=== PATIENT | female | born 1945 | race Caucasian/White ===

== ENCOUNTER 2017-06-21 05:39 | Inpatient (IN) | payer MEDICAID ==
[~2017-06-21] VITALS: Ht 162.6 cm; Wt 60.1 kg
[2017-06-21] VITALS (11 sets, daily range): BP systolic 117–130; BP diastolic 56–68; PULSE 67–99; RESP 12–20; TEMP 98.3; Ht 162.6 cm; Wt 60.1 kg
[~2017-06-21 05:39] MED LIST: ASPI-664 PO; CARV3.12 PO; LOSA50TA6 PO; SITA50TA2 PO
[2017-06-21] MEDS ORDERED: LEVALBUTEROL (NEB) 1.25 MG/0.5 ML AMP HHN ONE (06:00)
[2017-06-21] MEDS ORDERED: IPRATROPIUM (NEB) 0.5 MG/2.5 ML AMP HHN ONE (06:00)
--- NOTE | 2017-06-21 06:17 | ERD ---
ER Documentation Chief Complaint Chief Complaint SOB started 0400 am; pt has been having cough lately; denies CP HPI 72-year-old woman presents with shortness of breath beginning early in the morning, she has had similar symptoms but daughter at the bedside does not know about her diagnoses. Patient denies fevers or chills, no cough, no recent calf or leg swelling. Patient denies chest pain, no vomiting or diarrhea. Unknown medication compliance. Poor historian. ROS All systems reviewed and are negative except as per history of present illness. Medications Home Meds Active Scripts Aspirin* (Aspirin* EC) 81 Mg Tabec, 81 MG PO DAILY, #30 Prov:IVÁN ERVIN V. NURSE QUALITY 07/28/15 Reported Medications Aspirin* (Aspirin* Chew) 81 Mg Tab.chew, 81 MG PO DAILY, TAB.CHEW 06/21/17 Metoprolol Succinate* (Toprol XL*) 100 Mg Tab.sr.24h, 100 MG PO DAILY, #30 TAB 06/21/17 Metformin* (Glucophage*) 850 Mg Tablet, 850 MG PO BID, #60 TAB 06/21/17 Sitagliptin* (Januvia*) 50 Mg Tablet, 50 MG PO DAILY, TAB 07/26/15 Losartan Potassium* (Losartan Potassium*) 50 Mg Tablet, 50 MG PO DAILY, TAB 07/26/15 Discontinued Scripts Carvedilol* (Coreg*) 3.125 Mg Tab, 3.125 MG PO BID, #30 TAB Prov:IVÁN ERVIN V. NURSE QUALITY 07/28/15 Allergies Allergies: Coded Allergies: No Known Allergy (Unverified , 07/26/15) PMhx/Soc Hypertension, CHF, CAD History of Surgery: Yes (shoulder, hand) Anesthesia Reaction: No Hx Neurological Disorder: Yes (PER DAUGHTER HAD LIKE STROKE ONLY INT THE FACE 25 YRS AGO) Hx Respiratory Disorders: No Hx Cardiac Disorders: Yes (HTN) Hx Psychiatric Problems: No Hx Miscellaneous Medical Probl: Yes (diabetes) Hx Alcohol Use: No Hx Substance Use: No Hx Tobacco Use: No Smoking Status: Never smoker FmHx Family History: No diabetes Physical Exam Vitals Vital Signs Date Time Temp Pulse Resp B/P Pulse Ox O2 Delivery O2 Flow Rate FiO2 06/21/17 07:50 98.4 69 26 122/61 96 Nasal Cannula 2.0 06/21/17 06:09 90 18 97 Nasal Cannula 2.0 06/21/17 06:09 97 2.0 06/21/17 06:01 98.6 81 28 167/81 97 Nasal Cannula 2.0 06/21/17 06:01 Nasal Cannula 2.0 06/21/17 06:01 Nasal Cannula 2 06/21/17 05:42 97.1 87 25 178/84 87 Physical Exam GENERAL: Well-developed, well-nourished, well-hydrated, in no apparent distress , looks nontoxic in appearance HEENT: Moist mucous membranes, pink conjunctiva, no cervical spine tenderness or step-off deformities, no goiter, no jaundice or icterus, extraocular movements intact without pain. No submandibular induration, and no pharyngeal erythema NEURO: Alert and oriented 3, cranial nerves II through XII intact bilaterally, pupils equal round reactive to light, no focal deficits or facial asymmetry, sensation intact distally Strength 5/5 in upper and lower extremities bilaterally CARDIAC: Regular rate and rhythm, no murmurs rubs or gallops LUNGS: Bibasilar crackles, no wheezing or stridor ABDOMEN: Soft nontender, no guarding, no rigidity, no rebound, no psoas sign no obturator sign. Normoactive bowel sounds SKIN: Warm and dry to touch, no abrasions, contusions, or hematomas, no lacerations, no ecchymosis, no target lesions, and without ulcers EXTREMITIES: No clubbing cyanosis or edema, calves are bilaterally symmetrical, no Homans sign, no popliteal cord sign. Distal pulses equal and bilateral PSYCH: Normal affect without agitation or irritability Result Diagram: 06/21/17 0606/21/17 06 Results 24 hrs Laboratory Tests Test 06/21/17 06:00 White Blood Count 12.810^3/ul Red Blood Count 4.5710^6/ul Hemoglobin 13.5g/dl Hematocrit 41.7% Mean Corpuscular Volume 91.2fl Mean Corpuscular Hemoglobin 29.5pg Mean Corpuscular Hemoglobin Concent 32.4g/dl Red Cell Distribution Width 12.9% Platelet Count 33237^3/UL Mean Platelet Volume 11.4fl Neutrophils % 74.1% Lymphocytes % 18.3% Monocytes % 6.2% Eosinophils % 0.8% Basophils % 0.2% Nucleated Red Blood Cells % 0.0/100WBC Neutrophils # 9.510^3/ul Lymphocytes # 2.410^3/ul Monocytes # 0.810^3/ul Eosinophils # 0.110^3/ul Basophils # 0.010^3/ul Nucleated Red Blood Cells # 0.010^3/ul Prothrombin Time 12.7Sec Prothrombin Time Ratio 1.0 INR International Normalized Ratio 0.95 Activated Partial Thromboplast Time 25.9Sec Sodium Level 141mmol/L Potassium Level 4.1mmol/L Chloride Level 101mmol/L Carbon Dioxide Level 28mmol/L Anion Gap 16 Blood Urea Nitrogen 16mg/dl Creatinine 0.70mg/dl Glucose Level 207mg/dl Calcium Level 9.5mg/dl Troponin I 0.016ng/ml B-Type Natriuretic Peptide 1690PG/ML Current Medications Medications (Trade) Dose Ordered Sig/Carrol Route PRN Reason Start Time Stop Time Status Last Admin Dose Admin Levalbuterol (Xopenex Neb) 1.25 mg ONCE ONCE HHN 06/21/17 06:00 06/21/17 06:01 DC 06/21/17 06:06 Ipratropium [place] (Atrovent 0.02% (Neb)) 0.5 mg ONCE ONCE HHN 06/21/17 06:00 06/21/17 06:01 DC 06/21/17 06:06 Furosemide (Lasix) 60 mg ONCE ONCE IV 06/21/17 06:30 06/21/17 06:31 DC 06/21/17 07:55 Aspirin (Aspirin) 324 mg ONCE ONCE PO 06/21/17 06:30 06/21/17 06:31 DC 06/21/17 07:55 Nitroglycerin (Nitroglycerin (Sl Tab) 0.4 Mg) 1 tab ONCE ONCE SL 06/21/17 06:30 06/21/17 06:31 DC 06/21/17 07:55 Procedures/MDM IV line was established 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 Patient was afebrile EKG performed, read by me revealed a normal sinus rhythm at 80 bpm, normal axis , right bundle branch block QRS duration of 126 ms, LVH, no concerning ST elevations or depressions noted, diffuse T-wave inversions. One view chest x-ray performed, read by me revealed a minor edema bilaterally and cardiomegaly, no acute infiltrates, no pneumothorax. Consistent with decompensated heart failure I administered aspirin 324 mg p.o. for cardioprotective measures, nitroglycerin 0.4 mg sublingual 1, furosemide 60 mg IV 1. CBC and electrolytes were normal, troponin was negative, BNP elevated Patient to be admitted to telemetry setting for continued medical management and cardiology consultation. Departure Diagnosis: Primary Impression: CHF (congestive heart failure) Congestive heart failure type: diastolic Congestive heart failure chronicity : acute Qualified Code: I50.31 - Acute diastolic congestive heart failure Condition: ALLIE Hines MD Jun 21, 2017 06:17
[2017-06-21] MEDS ORDERED: ASPIRIN 81 MG TAB PO ONE (06:30)
[2017-06-21] MEDS ORDERED: NITROGLYCERIN (SL) 0.4 MG TAB SL ONE (06:30)
[2017-06-21] MEDS ORDERED: FUROSEMIDE 40 MG INJ IV ONE (06:30)
[2017-06-21 06:39] LABS: BASOPHILS % 0.2 % (0.0-2.0); EOSINOPHILS # 0.1 10^3/ul (0.0-0.5); EOSINOPHILS % 0.8 % (0.0-7.0); HEMATOCRIT 41.7 % (37.0-47.0); HEMOGLOBIN 13.5 g/dl (12.0-16.0); LYMPHOCYTES # 2.4 10^3/ul (0.8-2.9); LYMPHOCYTES % 18.3 % (15.0-51.0); MEAN CORPUSCULAR HEMOGLOBIN 29.5 pg (29.0-33.0); MEAN CORPUSCULAR HGB CONC 32.4 g/dl (32.0-37.0); MEAN CORPUSCULAR VOLUME 91.2 fl (82.0-101.0); MEAN PLATELET VOLUME 11.4 fl (7.4-10.4); MONOCYTE # 0.8 10^3/ul (0.3-0.9); MONOCYTES % 6.2 % (0.0-11.0); NEUTROPHIL # 9.5 10^3/ul (1.6-7.5); NEUTROPHILS % 74.1 % (39.0-77.0); PLATELET COUNT 184 10^3/UL (140-415); RED BLOOD COUNT 4.57 10^6/ul (4.20-5.40); RED CELL DISTRIBUTION WIDTH 12.9 % (11.5-14.5); WHITE BLOOD COUNT 12.8 10^3/ul (4.8-10.8)
--- NOTE | 2017-06-21 06:47 | RADRPT ---
PROCEDURE: XR Chest. CLINICAL INDICATION: CHF TECHNIQUE: Frontal chest x-ray was obtained. COMPARISON: Chest x-ray July 26, 2015 FINDINGS: The heart is not enlarged. Mediastinum is not widened. No hilar masses seen. Lungs clear of any infi ltrates. There is no effusion or pneumothorax. IMPRESSION: No evidence for active cardiopulmonary disease. .Arik Solis MD, MD Date Time Electronically viewed and signed by .Arik Solis MD, on 06/21/2017 06:47 .A/
[2017-06-21 06:55] LABS: INR 0.95; PARTIAL THROMBOPLASTIN TIME 25.9 Sec (25.0-35.0); PROTIME 12.7 Sec (12.2-14.2)
[2017-06-21 06:59] LABS: CALCIUM 9.5 mg/dl (8.4-10.2); CREATININE 0.7 mg/dl (0.44-1.00); POTASSIUM 4.1 mmol/L (3.5-5.1)
[2017-06-21 07:10] LABS: TROPONIN-I 0.016 ng/ml (0.00-0.12)
[2017-06-21] MEDS ORDERED: METO-336 PO (08:59)
[2017-06-21] MEDS ORDERED: METF-480 PO (08:59)
[2017-06-21] MEDS ORDERED: ASPI81TA3 PO (09:00)
--- NOTE | 2017-06-21 12:30 | HP ---
Date/Time of Note Date/Time of Note DATE: 06/21/17 TIME: 12:30 Assessment/Plan VTE Prophylaxis VTE Prophylaxis Intervention: LMWH Assessment/Plan Assessment/Plan 1. Acute onset of shortness of breath with elevated BNP suggestive of congestive heart failure 2. EKG abnormality concerning for possible ACS 3. Chronic hypertension with fair control 4. Chronic diabetes type 2 Plan Telemetry admission, trend cardiac enzymes, 2d echo if none recently and possible cardiology consult for stress test. oxygen and nitroglycerin therapy as needed. Gentle diuresis with IV lasix Daily aspirin if no allergy or bleeding risk. Get lipid profile, magnesium and TSH levels in am. Supportive care HPI/ROS Admit Date/Time Admit Date/Time Jun 21, 2017 at 07:53 Hx of Present Illness 72 yo F who started having difficulty breathing early this am at about 4am. This got worse to where her family had to bring her to the ER. She has a hx of HTN and DM and has been very compliant with her meds. She has never had an NH in the past. She's been having some mild phlegm production over the last few days but no fever. She denies chest pain as well. she has had similar symptoms about 2 years ago and this was attributed to her HTN. She has very mild headache, but denies abd pain, diarrhea, blood in stool, dysuria or hematuria. No smokers in the home. ROS 12 point review if systems was done and pertinent findings are as noted. PMH/Family/Social Past Medical History * HYN * DM type 2 Past Surgical History * shoulder and hand sx Family History Significant Family History: heart disease, vascular disease Social History Alcohol Use: none Smoking Status: Never smoker Drug Use: none Exam/Review of Systems Vital Signs Vitals VS - Last 72 Hours, by Label Date Time Temp Pulse Resp B/P Pulse Ox O2 Delivery O2 Flow Rate FiO2 06/21/17 16:02 99 06/21/17 14:45 76 12 130/64 99 Room Air 06/21/17 12:00 71 06/21/17 11:31 74 06/21/17 11:15 74 06/21/17 11:00 98.5 73 20 119/56 Room Air 06/21/17 10:28 98.3 74 22 117/55 97 Room Air 2.0 06/21/17 07:50 98.4 69 26 122/61 96 Nasal Cannula 2.0 06/21/17 06:09 90 18 97 Nasal Cannula 2.0 06/21/17 06:09 97 2.0 06/21/17 06:01 98.6 81 28 167/81 97 Nasal Cannula 2.0 06/21/17 06:01 Nasal Cannula 2.0 06/21/17 06:01 Nasal Cannula 2 06/21/17 05:42 97.1 87 25 178/84 87 Vital Signs Date Time Temp Pulse Resp B/P Pulse Ox O2 Delivery O2 Flow Rate FiO2 06/21/17 11:31 74 06/21/17 11:00 98.5 20 119/56 Room Air 06/21/17 10:28 97 2.0 Exam Constitutional: alert, oriented Psych: anxiety Head: atraumatic, normocephalic Eyes: PERRL ENMT: mucosa pink and moist Neck: non-tender, supple, No jvd Respiratory: crackles/rales (very fine in the bases posteriorly) Cardiovascular: regular rate and rhythm, No murmurs/extra sounds Gastrointestinal: bowel sounds, non-tender, soft Extremities: No edema Neurological: nl mental status, No focal weakness Labs Result Diagram: 06/21/17 0600 06/21/17 0600 Procedures Procedures . Laboratory Tests Test 06/21/17 06:00 White Blood Count 12.810^3/ul Red Blood Count 4.5710^6/ul Hemoglobin 13.5g/dl Hematocrit 41.7% Mean Corpuscular Volume 91.2fl Mean Corpuscular Hemoglobin 29.5pg Mean Corpuscular Hemoglobin Concent 32.4g/dl Red Cell Distribution Width 12.9% Platelet Count 21114^3/UL Mean Platelet Volume 11.4fl Neutrophils % 74.1% Lymphocytes % 18.3% Monocytes % 6.2% Eosinophils % 0.8% Basophils % 0.2% Nucleated Red Blood Cells % 0.0/100WBC Neutrophils # 9.510^3/ul Lymphocytes # 2.410^3/ul Monocytes # 0.810^3/ul Eosinophils # 0.110^3/ul Basophils # 0.010^3/ul Nucleated Red Blood Cells # 0.010^3/ul Prothrombin Time 12.7Sec Prothrombin Time Ratio 1.0 INR International Normalized Ratio 0.95 Activated Partial Thromboplast Time 25.9Sec Sodium Level 141mmol/L Potassium Level 4.1mmol/L Chloride Level 101mmol/L Carbon Dioxide Level 28mmol/L Anion Gap 16 Blood Urea Nitrogen 16mg/dl Creatinine 0.70mg/dl Glucose Level 207mg/dl Calcium Level 9.5mg/dl Troponin I 0.016ng/ml B-Type Natriuretic Peptide 1690PG/ML Current Medications Medications (Trade) Dose Ordered Sig/Carrol Route PRN Reason Start Time Stop Time Status Last Admin Dose Admin Levalbuterol (Xopenex Neb) 1.25 mg ONCE ONCE N 06/21/17 06:00 06/21/17 06:01 DC 06/21/17 06:06 Ipratropium [place] (Atrovent 0.02% (Neb)) 0.5 mg ONCE ONCE N 06/21/17 06:00 06/21/17 06:01 DC 06/21/17 06:06 Furosemide (Lasix) 60 mg ONCE ONCE IV 06/21/17 06:30 06/21/17 06:31 DC 06/21/17 07:55 Aspirin (Aspirin) 324 mg ONCE ONCE PO 06/21/17 06:30 06/21/17 06:31 DC 06/21/17 07:55 Nitroglycerin (Nitroglycerin (Sl Tab) 0.4 Mg) 1 tab ONCE ONCE SL 06/21/17 06:30 06/21/17 06:31 DC 06/21/17 07:55 Aspirin (Halfprin) 81 mg DAILY PO 06/21/17 14:00 UNV Losartan Potassium (Cozaar) 50 mg DAILY PO 06/22/17 09:00 UNV Metformin HCl (Glucophage) 850 mg BID PO 06/21/17 21:00 UNV Miscellaneous Information 50 mg DAILY PO 06/22/17 09:00 UNV Metoprolol Tartrate (Lopressor) 25 mg BID PO 06/21/17 14:00 UNV Furosemide (Lasix) 20 mg BID DIURETICS IV 06/21/17 18:00 UNV PROCEDURE: XR Chest. CLINICAL INDICATION: CHF TECHNIQUE: Frontal chest x-ray was obtained. COMPARISON: Chest x-ray July 26, 2015 FINDINGS: The heart is not enlarged. Mediastinum is not widened. No hilar masses seen. Lungs clear of any infiltrates. There is no effusion or pneumothorax. IMPRESSION: No evidence for active cardiopulmonary disease. .Arik Solis MD, MD Date Time Electronically viewed and signed by .Arik Solis MD, MD on 06/21/2017 06: 47 .A/ CC: MARGIE MCCONNELL MD Patient has normal return EKG but there is concern for some ST depressions as well as multiple PACs which is also showing on the chief of service. JEFFERY GUZMÁN Jun 21, 2017 12:30
[2017-06-21] MEDS ORDERED: DEXTROSE 50% 50 ML SYRINGE IV PRN ×2 (14:30)
[2017-06-21] MEDS: LOSARTAN 50 MG TAB PO SCH (14:30)
[2017-06-21] MEDS ORDERED: GLUCOSE GEL 15 GRAM TUBE BUCCAL PRN (14:30)
[2017-06-21] MEDS: ASPIRIN (EC) 81 MG TAB PO SCH (14:30)
[2017-06-21] MEDS ORDERED: GLUCOSE GEL 15 GRAM TUBE PO PRN ×2 (14:30)
[2017-06-21] MEDS ORDERED: GLUCAGON 1 MG INJ IM PRN (14:30)
[2017-06-21] MEDS: METOPROLOL 50 MG TAB PO SCH ×2 (14:57→22:28)
[2017-06-21 16:25] LABS: ALBUMIN 4.2 g/dl (3.3-4.9); MAGNESIUM 1.9 mg/dl (1.7-2.5); PHOSPHORUS 4.2 mg/dl (2.5-4.9); TOTAL PROTEIN 7.1 g/dl (6.1-8.1)
[2017-06-21 16:36] LABS: CK-MB 0.8 ng/ml (0.0-2.4); TROPONIN-I 0.019 ng/ml (0.00-0.12)
[2017-06-21 17:10] LABS: CHOL/HDL RATIO 3.1 RATIO
--- NOTE | 2017-06-21 17:53 | RADRPT ---
Echocardiogram Report Patient Name: ANAY BELTRE Gender: Female Date: 1945 Study Date: 21-Jun-2017 Supervisor Harvesting: Traci [facility] Location: 3[address] Ref. Physician: JEFFERY GUZMÁN Quality: Technically Difficult Study Procedures: Transthoracic echocardiogram with complete 2D, M-Mode, and doppler examination. Indications: Shortness of breath. 2D/M Mode Doppler Measurement Value Normal Ranges Measurement Value Normal Ranges LVIDd 2D 4.4 3.5 - 5.6 cm AV Peak Rodo 1.4 m/sec LVIDs 2D 2.8 2.1 - 4.1 cm AV Peak PG 8.0 mmHg FS 2D 36.0 % LVOT Peak Rodo 1.2 m/sec LVPWd 2D 1.5 0.6 - 1.1 cm LVOT Peak PG 5.0 mmHg IVSd 2D 1.5 0.6 - 1.1 cm MV E Peak Rodo 1.0 m/sec IVS/LVPW 2D 1.0 MV A Peak Rodo 0.6 m/sec AoR Diam 2D 2.7 2.0 - 3.7 cm MV E/A 1.6 LA/Ao 2D 2 0 - 1 MV Decel Time 211 msec EDV 2D 88.1 cm3 MV E/A 1.6 ESV 2D 23.1 cm3 LA Dimen 2D 4.9 2.3 - 4.0 cm Findings Left Ventricle: Normal left ventricular systolic function. Normal left ventricular cavity size. Moderate concentric left ventricular hypertrophy. Ejection fraction is visually estimated at 55 %. Abnormal Diastolic Function. Right Ventricle: Normal right ventricular size. Normal right ventricular systolic function. Left Atrium: There is severe enlargement of left atrium. Right Atrium: The right atrium is normal in size. Mitral Valve: Mild mitral leaflet calcification. Mild mitral annular calcification. Trace mitral regurgitation. Aortic Valve: Normal appearance of the aortic valve. No significant aortic stenosis or insufficiency. Tricuspid Valve: Normal appearance of the tricuspid valve. Unable to obtain RVSP due to minimal presence of tricuspid regurgitation. There is trace tricuspid regurgitation. Pulmonic Valve: Pulmonic valve not well visualized. There is trace pulmonic regurgitation. Pericardium: Normal pericardium with no significant pericardial effusion. Aorta: Normal aortic root. IVC: Normal size and normal respiratory collapse consistent with normal right atrial pressure. Conclusions 1.Normal left ventricular systolic function. Normal left ventricular cavity size. Moderate concentric left ventricular hypertrophy. Ejection fraction is visually estimated at 55 %. Abnormal Diastolic Function. 2.Mild mitral leaflet calcification. Mild mitral annular calcification. Trace mitral regurgitation. 3.Normal appearance of the aortic valve. No significant aortic stenosis or insufficiency. 4.Normal appearance of the tricuspid valve. Unable to obtain RVSP due to minimal presence of tricuspid regurgitation. There is trace tricuspid regurgitation. 5.Pulmonic valve not well visualized. There is trace pulmonic regurgitation. 6.Normal pericardium with no significant pericardial effusion. Electronically Signed By: Trey Gupta 21-Jun-2017 17:52:54 -0800 Patient Name: ANAY BELTRE Study Date: 21-Jun-2017 [id number]
[2017-06-21] MEDS: FUROSEMIDE 20 MG INJ IV SCH (22:27)
[2017-06-21] MEDS: metFORMIN 850 MG TAB PO SCH (22:28)
[2017-06-21 22:58] LABS: ADD UMIC YES; UR ASCORBIC ACID NEGATIVE (NEGATIVE); UR BILIRUBIN (Dip) NEGATIVE (NEGATIVE); UR BLOOD (Dip) 1+ mg/dL (NEGATIVE); UR CLARITY CLEAR (CLEAR); UR COLOR STRAW (YELLOW); UR GLUCOSE (Dip) NEGATIVE (NEGATIVE); UR KETONES (Dip) NEGATIVE (NEGATIVE); UR LEUKOCYTE ESTERASE (Dip) NEGATIVE Leu/ul (NEGATIVE); UR NITRITE (Dip) NEGATIVE (NEGATIVE); UR RBC 1 /HPF (0-5); UR SPECIFIC GRAVITY (Dip) 1.005 (1.003-1.030); UR TOTAL PROTEIN (Dip) NEGATIVE (NEGATIVE); UR UROBILINOGEN (Dip) NEGATIVE (NEGATIVE)
[2017-06-22] VITALS (12 sets, daily range): BP systolic 94–131; BP diastolic 53–75; PULSE 70–85; RESP 16–20
[2017-06-22] MEDS: FUROSEMIDE 20 MG INJ IV SCH ×2 (06:19→17:08)
[2017-06-22 06:37] LABS: BASOPHILS % 0.4 % (0.0-2.0); EOSINOPHILS # 0.1 10^3/ul (0.0-0.5); HEMOGLOBIN 13.9 g/dl (12.0-16.0); LYMPHOCYTES # 1.9 10^3/ul (0.8-2.9); LYMPHOCYTES % 27.5 % (15.0-51.0); MEAN CORPUSCULAR HEMOGLOBIN 29.8 pg (29.0-33.0); MEAN CORPUSCULAR HGB CONC 33.1 g/dl (32.0-37.0); MEAN CORPUSCULAR VOLUME 89.9 fl (82.0-101.0); MEAN PLATELET VOLUME 11.3 fl (7.4-10.4); MONOCYTE # 0.7 10^3/ul (0.3-0.9); MONOCYTES % 10.3 % (0.0-11.0); NEUTROPHIL # 4.3 10^3/ul (1.6-7.5); NEUTROPHILS % 60.5 % (39.0-77.0); PLATELET COUNT 170 10^3/UL (140-415); RED BLOOD COUNT 4.67 10^6/ul (4.20-5.40)
[2017-06-22 07:21] LABS: CALCIUM 9.9 mg/dl (8.4-10.2); CREATININE 0.87 mg/dl (0.44-1.00); POTASSIUM 4.8 mmol/L (3.5-5.1)
[2017-06-22] MEDS: ASPIRIN (EC) 81 MG TAB PO SCH (08:41)
[2017-06-22] MEDS: LOSARTAN 50 MG TAB PO SCH (08:41)
[2017-06-22] MEDS: METOPROLOL 50 MG TAB PO SCH ×2 (08:41→21:17)
[2017-06-22] MEDS: LINAGLIPTIN 5 MG TABLET PO SCH (08:41)
[2017-06-22] MEDS: metFORMIN 850 MG TAB PO SCH ×2 (08:41→17:08)
[2017-06-22 11:59] LABS: CREATINE KINASE 129 IU/L (23-200)
[2017-06-22 12:13] LABS: CK-MB 1.19 ng/ml (0.0-2.4)
[2017-06-22 12:14] LABS: TROPONIN-I < 0.012 ng/ml (0.00-0.12)
--- NOTE | 2017-06-22 12:51 | DS ---
Date/Time of Note Date/Time of Note DATE: 06/22/17 TIME: 12:47 Discharge Summary Admission/Discharge Info Admit Date/Time Jun 21, 2017 at 07:53 Discharge Date/Time Patient Condition: Stable Hx of Present Illness 72 yo F who started having difficulty breathing early this am at about 4am. This got worse to where her family had to bring her to the ER. She has a hx of HTN and DM and has been very compliant with her meds. She has never had an WI in the past. She's been having some mild phlegm production over the last few days but no fever. She denies chest pain as well. she has had similar symptoms about 2 years ago and this was attributed to her HTN. She has very mild headache, but denies abd pain, diarrhea, blood in stool, dysuria or hematuria. No smokers in the home. . Hospital Course 72-year-old female who was admitted yesterday with difficulty breathing and was admitted also with some EKG abnormalities. She was ruled out for an acute coronary syndrome with 3 negative troponins, she had a 2D echocardiogram done, but based on her elevated BNP she was treated for a mild episode of an acute congestive heart failure. However during inpatient telemetry monitoring she was noted to be in atrial fibrillation intermittently wi good rate control. The patient has been told this in the past that she does have irregular heartbeat but for some reason she was placed on aspirin and any blood thinners. She will be seen by cardiology and if no further interventions, discharged home in stable condition. . Home Meds Active Scripts Aspirin* (Aspirin* EC) 81 Mg Tabec, 81 MG PO DAILY, #30 Prov:IVÁN ERVIN NP 07/28/15 Reported Medications Aspirin* (Aspirin* Chew) 81 Mg Tab.chew, 81 MG PO DAILY, TAB.CHEW 06/21/17 Metoprolol Succinate* (Toprol XL*) 100 Mg Tab.sr.24h, 100 MG PO DAILY, #30 TAB 06/21/17 Metformin* (Glucophage*) 850 Mg Tablet, 850 MG PO BID, #60 TAB 06/21/17 Sitagliptin* (Januvia*) 50 Mg Tablet, 50 MG PO DAILY, TAB 07/26/15 Losartan Potassium* (Losartan Potassium*) 50 Mg Tablet, 50 MG PO DAILY, TAB 07/26/15 Discontinued Scripts Carvedilol* (Coreg*) 3.125 Mg Tab, 3.125 MG PO BID, #30 TAB Prov:IVÁN ERVIN V. VÍCTOR 07/28/15 Primary Care Provider Care Physician No Primary Time spent on discharge: > 30 minutes Pending Labs Laboratory Tests Test 06/21/17 13:51 06/21/17 15:43 06/21/17 18:53 06/21/17 18:55 Bedside Glucose 132mg/dL (70-220) 119mg/dL (70-220) Phosphorus Level 4.2mg/dl (2.5-4.9) Magnesium Level 1.9mg/dl (1.7-2.5) Total Bilirubin 1.0mg/dl (0.2-1.3) Direct Bilirubin 0.00mg/dl (0.00-0.20) Indirect Bilirubin 1.0mg/dl (0-1.1) Aspartate Amino Transf (AST/SGOT) 19IU/L (15-46) Alanine Aminotransferase (ALT/SGPT) 26IU/L (13-69) Alkaline Phosphatase 61IU/L (42-121) Creatine Kinase 68IU/L (23-200) Creatine Kinase Index 1.2 Creatinine Kinase MB (Mass) 0.80ng/ml (0.0-2.4) Troponin I 0.019ng/ml (0.00-0.12) Total Protein 7.1g/dl (6.1-8.1) Albumin 4.2g/dl (3.3-4.9) Triglycerides Level 95mg/dl (0-149) Cholesterol Level 124mg/dl (100-200) LDL Cholesterol, Calculated 65mg/dl HDL Cholesterol 40mg/dl (33-92) Cholesterol/HDL Ratio 3.1RATIO Urine Color STRAW (YELLOW) Urine Clarity CLEAR (CLEAR) Urine pH 7.0 (5.0-9.0) Urine Specific [place] 1.005 (1.003-1.030) Urine Ketones NEGATIVEmg/dL (NEGATIVE) Urine Nitrite NEGATIVEmg/dL (NEGATIVE) Urine Bilirubin NEGATIVEmg/dL (NEGATIVE) Urine Urobilinogen NEGATIVEmg/dL (NEGATIVE) Urine Leukocyte Esterase NEGATIVELeu/ul (NEGATIVE) Urine Microscopic RBC 1/HPF (0-5) Urine Microscopic WBC 0/HPF (0-5) Urine Hemoglobin 1+mg/dL (NEGATIVE) Urine Glucose NEGATIVEmg/dL (NEGATIVE) Urine Total Protein NEGATIVEmg/dl (NEGATIVE) Test 06/22/17 05:57 06/22/17 08:40 White Blood Count 7.010^3/ul (4.8-10.8) Red Blood Count 4.6710^6/ul (4.20-5.40) Hemoglobin 13.9g/dl (12.0-16.0) Hematocrit 42.0% (37.0-47.0) Mean Corpuscular Volume 89.9fl (82.0-101.0) Mean Corpuscular Hemoglobin 29.8pg (29.0-33.0) Mean Corpuscular Hemoglobin Concent 33.1g/dl (32.0-37.0) Red Cell Distribution Width 13.0% (11.5-14.5) Platelet Count 14447^3/UL (140-415) Mean Platelet Volume 11.3fl (7.4-10.4) Neutrophils % 60.5% (39.0-77.0) Lymphocytes % 27.5% (15.0-51.0) Monocytes % 10.3% (0.0-11.0) Eosinophils % 1.0% (0.0-7.0) Basophils % 0.4% (0.0-2.0) Nucleated Red Blood Cells % 0.0/100WBC (0.0-0.0) Neutrophils # 4.310^3/ul (1.6-7.5) Lymphocytes # 1.910^3/ul (0.8-2.9) Monocytes # 0.710^3/ul (0.3-0.9) Eosinophils # 0.110^3/ul (0.0-0.5) Basophils # 0.010^3/ul (0.0-0.1) Nucleated Red Blood Cells # 0.010^3/ul (0.0-0.0) Sodium Level 142mmol/L (135-144) Potassium Level 4.8mmol/L (3.5-5.1) Chloride Level 98mmol/L (97-110) Carbon Dioxide Level 35mmol/L (21-31) Anion Gap 14 (8-16) Blood Urea Nitrogen 24mg/dl (7-20) Creatinine 0.87mg/dl (0.44-1.00) Glucose Level 152mg/dl (70-220) Calcium Level 9.9mg/dl (8.4-10.2) Creatine Kinase 129IU/L (23-200) Creatine Kinase Index 0.9 Creatinine Kinase MB (Mass) 1.19ng/ml (0.0-2.4) Troponin I < 0.012ng/ml (0.00-0.12) Thyroid Stimulating Hormone (TSH) 1.360MIU/L (0.465-4.680) Bedside Glucose 145mg/dL (70-220) JEFFERY GUZMÁN Jun 22, 2017 12:51 JEFFERY GUZMÁN Jun 22, 2017 12:51
--- NOTE | 2017-06-22 14:27 | CONS ---
Date/Time of Note Date/Time of Note DATE: 06/22/17 TIME: 14:22 Assessment/Plan Assessment/Plan Chief Complaint/Hosp Course 1) paroxysmal atrial flutter/atrial fibrillation, possibly new onset 2) Dynamic EKG changes 3) negative biomarkers 4) Preserved LV function 5) DM 6) HTN Problems: Additional Assessment/Plan 1) will start lovenox therapeutic 2) Given EKG changes and risk factors will order stress test 3) recommend to start eliquis is stress negative 4) will start statin Consultation Date/Type/Reason Admit Date/Time Jun 21, 2017 at 07:53 Date of Consultation: Jun 22, 2017 Type of Consultation: cv Reason for Consultation SOB Hx of Present Illness patient admitted w SOB, no chest pain, present since several days, no palpitations, no exertional symptoms, now resolved. Constitutional: no complaints Respiratory: no complaints Cardiovascular: no complaints Gastrointestinal: no complaints Musculoskeletal: no complaints Neurologic: no complaints Endocrine: no complaints Lymphatic: no complaints Past Medical History Medical History: diabetes, hypertension Past Surgical History Past Surgical Hx: no surgical history Family History Significant Family History: hypertension Social History Alcohol Use: none Smoking Status: Never smoker Drug Use: none Exam/Review of Systems Vital Signs Vitals Vital Signs Date Time Temp Pulse Resp B/P Pulse Ox O2 Delivery O2 Flow Rate FiO2 06/22/17 12:08 75 06/22/17 11:36 98.3 20 94/57 94 06/21/17 22:21 Room Air 1.0 Intake and Output 06/21/17 06/21/17 06/22/17 15:00 23:00 07:00 Intake Total 120 ml 300 ml Balance 120 ml 300 ml Exam Constitutional: alert, oriented Head: atraumatic, normocephalic Neck: supple Respiratory: clear to auscultation Cardiovascular: irregular rhythm Gastrointestinal: soft Musculoskeletal: nl extremities to inspection Extremities: normal pulses Neurological: [employer] II-XII intact Results Result Diagram: 06/22/17 0557 06/22/17 0557 Results 24 hrs Laboratory Tests Test 06/21/17 15:43 06/21/17 18:53 06/21/17 18:55 06/22/17 05:57 Phosphorus Level 4.2 Magnesium Level 1.9 Total Bilirubin 1.0 Direct Bilirubin 0.00 Indirect Bilirubin 1.0 Aspartate Amino Transf (AST/SGOT) 19 Alanine Aminotransferase (ALT/SGPT) 26 Alkaline Phosphatase 61 Creatine Kinase 68 129 Creatine Kinase Index 1.2 0.9 Creatinine Kinase MB (Mass) 0.80 1.19 Troponin I 0.019 < 0.012 Total Protein 7.1 Albumin 4.2 Triglycerides Level 95 Cholesterol Level 124 LDL Cholesterol, Calculated 65 HDL Cholesterol 40 Cholesterol/HDL Ratio 3.1 Bedside Glucose 119 Urine Color STRAW Urine Clarity CLEAR Urine pH 7.0 Urine Specific [place] 1.005 Urine Ketones NEGATIVE Urine Nitrite NEGATIVE Urine Bilirubin NEGATIVE Urine Urobilinogen NEGATIVE Urine Leukocyte Esterase NEGATIVE Urine Microscopic RBC 1 Urine Microscopic WBC 0 Urine Hemoglobin 1+ H Urine Glucose NEGATIVE Urine Total Protein NEGATIVE White Blood Count 7.0 # Red Blood Count 4.67 Hemoglobin 13.9 Hematocrit 42.0 Mean Corpuscular Volume 89.9 Mean Corpuscular Hemoglobin 29.8 Mean Corpuscular Hemoglobin Concent 33.1 Red Cell Distribution Width 13.0 Platelet Count 170 Mean Platelet Volume 11.3 H Neutrophils % 60.5 Lymphocytes % 27.5 Monocytes % 10.3 Eosinophils % 1.0 Basophils % 0.4 Nucleated Red Blood Cells % 0.0 Neutrophils # 4.3 Lymphocytes # 1.9 Monocytes # 0.7 Eosinophils # 0.1 Basophils # 0.0 Nucleated Red Blood Cells # 0.0 Sodium Level 142 Potassium Level 4.8 Chloride Level 98 Carbon Dioxide Level 35 H Anion Gap 14 Blood Urea Nitrogen 24 H Creatinine 0.87 Glucose Level 152 Calcium Level 9.9 Thyroid Stimulating Hormone (TSH) 1.360 Test 06/22/17 08:40 Bedside Glucose 145 Medications Medications Current Medications Aspirin (Halfprin) 81 mg DAILY PO Last administered on 06/22/17 08:41; Admin Dose 81 MG; Start 06/21/17 at 14:30 Losartan Potassium (Cozaar) 50 mg DAILY PO Last administered on 06/22/17 08:41 ; Admin Dose 50 MG; Start 06/21/17 at 14:30 Linagliptin (Tradjenta) 5 mg DAILY PO Last administered on 06/22/17 08:41; Admin Dose 5 MG; Start 06/22/17 at 09:00 Metoprolol Tartrate (Lopressor) 25 mg BID PO Last administered on 06/22/17 08: 41; Admin Dose 25 MG; Start 06/21/17 at 14:30 Miscellaneous Information 1 ea NOTE XX ; Start 06/21/17 at 14:30 Glucose (Glutose) 15 gm Q15M PRN PO DECREASED GLUCOSE; Start 06/21/17 at 14:30 Glucose (Glutose) 22.5 gm Q15M PRN PO DECREASED GLUCOSE; Start 06/21/17 at 14: 30 Dextrose (D50w Syringe) 25 ml Q15M PRN IV DECREASED GLUCOSE; Start 06/21/17 at 14:30 Dextrose (D50w Syringe) 50 ml Q15M PRN IV DECREASED GLUCOSE; Start 06/21/17 at 14:30 Glucagon (Glucagen) 1 mg Q15M PRN IM DECREASED GLUCOSE; Start 06/21/17 at 14: 30 Glucose (Glutose) 15 gm Q15M PRN BUCCAL DECREASED GLUCOSE; Start 06/21/17 at 14:30 Procedures Procedures EKG: atrial flutter, RBBB, ST cvhanges, dynamic changes JOCELYN GILLILAND MD Jun 22, 2017 14:27
[2017-06-22] MEDS: LEVOFLOXACIN 500 MG TAB PO SCH (17:07)
[2017-06-22] MEDS: ATORVASTATIN 10 MG TAB PO SCH (21:16)
[2017-06-22] MEDS: ENOXAPARIN 60 MG/0.6 ML SYG SC SCH (21:18)
[2017-06-23] VITALS (11 sets, daily range): BP systolic 104–121; BP diastolic 52–60; PULSE 66–80; RESP 17–20
[2017-06-23] MEDS: FUROSEMIDE 20 MG INJ IV SCH (06:02)
[2017-06-23 06:22] LABS: BASOPHILS % 0.5 % (0.0-2.0); EOSINOPHILS # 0.1 10^3/ul (0.0-0.5); EOSINOPHILS % 1.2 % (0.0-7.0); HEMOGLOBIN 13.4 g/dl (12.0-16.0); LYMPHOCYTES # 1.6 10^3/ul (0.8-2.9); LYMPHOCYTES % 21.3 % (15.0-51.0); MEAN CORPUSCULAR HEMOGLOBIN 29.5 pg (29.0-33.0); MEAN CORPUSCULAR HGB CONC 33.5 g/dl (32.0-37.0); MEAN CORPUSCULAR VOLUME 87.9 fl (82.0-101.0); MEAN PLATELET VOLUME 11.4 fl (7.4-10.4); MONOCYTE # 0.8 10^3/ul (0.3-0.9); MONOCYTES % 10.1 % (0.0-11.0); NEUTROPHILS % 66.6 % (39.0-77.0); PLATELET COUNT 182 10^3/UL (140-415); RED BLOOD COUNT 4.55 10^6/ul (4.20-5.40); RED CELL DISTRIBUTION WIDTH 12.8 % (11.5-14.5); WHITE BLOOD COUNT 7.5 10^3/ul (4.8-10.8)
[2017-06-23 06:51] LABS: CALCIUM 9.6 mg/dl (8.4-10.2); CREATININE 0.93 mg/dl (0.44-1.00); POTASSIUM 3.6 mmol/L (3.5-5.1)
[2017-06-23] MEDS: ASPIRIN (EC) 81 MG TAB PO SCH (08:18)
[2017-06-23] MEDS: LINAGLIPTIN 5 MG TABLET PO SCH (08:19)
[2017-06-23] MEDS: metFORMIN 850 MG TAB PO SCH ×2 (08:19→18:28)
[2017-06-23] MEDS: LOSARTAN 50 MG TAB PO SCH (08:20)
[2017-06-23] MEDS: METOPROLOL 50 MG TAB PO SCH ×2 (08:20→20:32)
[2017-06-23] MEDS: ENOXAPARIN 60 MG/0.6 ML SYG SC SCH ×2 (08:21→20:34)
[2017-06-23] MEDS ORDERED: REGADENOSON 0.4 MG/5 ML SYG ONE (10:05)
--- NOTE | 2017-06-23 10:12 | CONS ---
Date/Time of Note Date/Time of Note DATE: 06/23/17 TIME: 10:07 Consult Date/Type/Reason Admit Date/Time Jun 21, 2017 at 07:53 Initial Consult Date 06/22/17 Type of Consultation: cv Subjective cardiology follow up (covering Dr munoz) S pt with no chest pain or pressure or palpitations no bleeding pt has converted to NSR NOW o Gen no acute distress HEENT: NCAT CV RRR pulm no wheezing. no rhonchi GI: soft , NT ND. Ext no C/E/D neuro: awake and alert. Ox 2 PSYCH calm and pleasant Objective Vital Signs Date Time Temp Pulse Resp B/P Pulse Ox O2 Delivery O2 Flow Rate FiO2 06/23/17 08:12 78 06/23/17 08:00 97.7 17 110/56 96 06/23/17 05:00 Room Air 06/21/17 22:21 1.0 Intake and Output 06/22/17 06/22/17 06/23/17 15:00 23:00 07:00 Intake Total 820 ml 300 ml Balance 820 ml 300 ml Results/Medications Result Diagram: 06/23/17 0529 06/23/17 0528 Results 24 hrs Laboratory Tests Test 06/23/17 05:28 06/23/17 05:29 Sodium Level 140 Potassium Level 3.6 Chloride Level 98 Carbon Dioxide Level 29 Anion Gap 17 H Blood Urea Nitrogen 38 #H Creatinine 0.93 Glucose Level 132 Calcium Level 9.6 White Blood Count 7.5 Red Blood Count 4.55 Hemoglobin 13.4 Hematocrit 40.0 Mean Corpuscular Volume 87.9 Mean Corpuscular Hemoglobin 29.5 Mean Corpuscular Hemoglobin Concent 33.5 Red Cell Distribution Width 12.8 Platelet Count 182 Mean Platelet Volume 11.4 H Neutrophils % 66.6 Lymphocytes % 21.3 Monocytes % 10.1 Eosinophils % 1.2 Basophils % 0.5 Nucleated Red Blood Cells % 0.0 Neutrophils # 5.0 Lymphocytes # 1.6 Monocytes # 0.8 Eosinophils # 0.1 Basophils # 0.0 Nucleated Red Blood Cells # 0.0 Medications Current Medications Aspirin (Halfprin) 81 mg DAILY PO Last administered on 06/23/17t 08:18; Admin Dose 81 MG; Start 06/21/17 at 14:30 Losartan Potassium (Cozaar) 50 mg DAILY PO Last administered on 06/23/17 08:20 ; Admin Dose 50 MG; Start 06/21/17 at 14:30 Linagliptin (Tradjenta) 5 mg DAILY PO Last administered on 06/23/17 08:19; Admin Dose 5 MG; Start 06/22/17 at 09:00 Metoprolol Tartrate (Lopressor) 25 mg BID PO Last administered on 06/23/17 08: 20; Admin Dose 25 MG; Start 06/21/17 at 14:30 Miscellaneous Information 1 ea NOTE XX ; Start 06/21/17 at 14:30 Glucose (Glutose) 15 gm Q15M PRN PO DECREASED GLUCOSE; Start 06/21/17 at 14:30 Glucose (Glutose) 22.5 gm Q15M PRN PO DECREASED GLUCOSE; Start 06/21/17 at 14: 30 Dextrose (D50w Syringe) 25 ml Q15M PRN IV DECREASED GLUCOSE; Start 06/21/17 at 14:30 Dextrose (D50w Syringe) 50 ml Q15M PRN IV DECREASED GLUCOSE; Start 06/21/17 at 14:30 Glucagon (Glucagen) 1 mg Q15M PRN IM DECREASED GLUCOSE; Start 06/21/17 at 14: 30 Glucose (Glutose) 15 gm Q15M PRN BUCCAL DECREASED GLUCOSE; Start 06/21/17 at 14:30 Atorvastatin Calcium (Lipitor) 10 mg HS PO Last administered on 06/22/17 21:16 ; Admin Dose 10 MG; Start 06/22/17 at 21:00 Enoxaparin Sodium (Lovenox) 60 mg Q12H SC Last administered on 06/23/17 08:21 ; Admin Dose 60 MG; Start 06/22/17 at 21:00 Levofloxacin (Levaquin) 500 mg DAILY@16 PO Last administered on 06/22/17 17:07 ; Admin Dose 500 MG; Start 06/22/17 at 16:00 Assessment/Plan Chief Complaint/Hosp Course 1) paroxysmal atrial flutter/atrial fibrillation, possibly new onset 2) Dynamic EKG changes 3) negative biomarkers 4) Preserved LV function 5) DM 6) HTN anticoagulation. consider eliquis or xarelto if stress test is negative lexiscan today dc lasix cont other cardiac med for now on statin Problems: ÁLVARO GARCIA MD Jun 23, 2017 10:12
--- NOTE | 2017-06-23 11:49 | RADRPT ---
PROCEDURE: Lexiscan myocardial perfusion study CLINICAL INDICATION: 72 -year-old patient complaining of chest pain. TECHNIQUE: Lexiscan 0.4 mg intravenously separate acquisition gated myocardial perfusion SPECT usi ng Tc 99m Myoview 33.0 mCi intravenously at stress and Tc-99m Myoview, 10.5 mCi intravenously at res t was performed using the rest/stress sequence. Poststress Myoview SPECT images were obtained in th e supine position. COMPARISON: No prior studies. FINDINGS: Perfusion images reveal no evidence of perfusion defects. Lexiscan post stress gated SPECT images demonstrate no wall motion abnormalities. IMPRESSION: 1. No evidence of perfusion defects. 2. No wall motion abnormalities. 3. The left ventricle ejection fraction at stress is 57%. RPTAT: QQ .Tamiko Lawler MD, MD Date Time Electronically viewed and signed by .Tamiko Lawler MD, MD on 06/23/2017 11:49 .L/
--- NOTE | 2017-06-23 13:42 | PN ---
Date/Time of Note Date/Time of Note DATE: 06/23/17 TIME: 13:40 Assessment/Plan VTE Prophylaxis VTE Prophylaxis Intervention: contraindicated Lines/Catheters IV C[facility]from [facility] Saline Lock Assessment/Plan Problems: (1) Paroxysmal atrial fibrillation Status: Chronic Comment: In sinus rhythm now (2) CHF (congestive heart failure) Status: Acute Comment: Stable. Potential for discharge in the morning Qualifiers: Congestive heart failure type: diastolic Congestive heart failure chronicity: acute Qualified Code: I50.31 - Acute diastolic congestive heart failure (3) Dyspnea Status: Acute Comment: Clearing up Subjective 24 Hr Interval Summary Free Text/Dictation Patient is doing relatively well. Please note her discharge was held so that she could get a cardiac screening test Lexiscan. That was reportedly done today but the results are not printed available in the computer Constitutional: no complaints Respiratory: no complaints Cardiovascular: no complaints Exam/Review of Systems Vital Signs Vitals Vital Signs Date Time Temp Pulse Resp B/P Pulse Ox O2 Delivery O2 Flow Rate FiO2 06/23/17 12:09 97.9 66 18 104/52 94 06/23/17 05:00 Room Air 06/21/17 22:21 1.0 Intake and Output 06/22/17 06/22/17 06/23/17 15:00 23:00 07:00 Intake Total 820 ml 300 ml Balance 820 ml 300 ml Exam Constitutional: alert, oriented Respiratory: clear to auscultation, normal air movement Cardiovascular: nl pulses, regular rate and rhythm Results Result Diagram: 06/23/17 0529 06/23/17 0528 Results 24 hrs Laboratory Tests Test 06/23/17 05:28 06/23/17 05:29 06/23/17 11:57 Sodium Level 140 Potassium Level 3.6 Chloride Level 98 Carbon Dioxide Level 29 Anion Gap 17 H Blood Urea Nitrogen 38 #H Creatinine 0.93 Glucose Level 132 Calcium Level 9.6 White Blood Count 7.5 Red Blood Count 4.55 Hemoglobin 13.4 Hematocrit 40.0 Mean Corpuscular Volume 87.9 Mean Corpuscular Hemoglobin 29.5 Mean Corpuscular Hemoglobin Concent 33.5 Red Cell Distribution Width 12.8 Platelet Count 182 Mean Platelet Volume 11.4 H Neutrophils % 66.6 Lymphocytes % 21.3 Monocytes % 10.1 Eosinophils % 1.2 Basophils % 0.5 Nucleated Red Blood Cells % 0.0 Neutrophils # 5.0 Lymphocytes # 1.6 Monocytes # 0.8 Eosinophils # 0.1 Basophils # 0.0 Nucleated Red Blood Cells # 0.0 Bedside Glucose 112 Medications Medications Current Medications Aspirin (Halfprin) 81 mg DAILY PO Last administered on 06/23/17 08:18; Admin Dose 81 MG; Start 06/21/17 at 14:30 Losartan Potassium (Cozaar) 50 mg DAILY PO Last administered on 06/23/17 08:20 ; Admin Dose 50 MG; Start 06/21/17 at 14:30 Linagliptin (Tradjenta) 5 mg DAILY PO Last administered on 06/23/17 08:19; Admin Dose 5 MG; Start 06/22/17 at 09:00 Metoprolol Tartrate (Lopressor) 25 mg BID PO Last administered on 06/23/17 08: 20; Admin Dose 25 MG; Start 06/21/17 at 14:30 Miscellaneous Information 1 ea NOTE XX ; Start 06/21/17 at 14:30 Glucose (Glutose) 15 gm Q15M PRN PO DECREASED GLUCOSE; Start 06/21/17 at 14:30 Glucose (Glutose) 22.5 gm Q15M PRN PO DECREASED GLUCOSE; Start 06/21/17 at 14: 30 Dextrose (D50w Syringe) 25 ml Q15M PRN IV DECREASED GLUCOSE; Start 06/21/17 at 14:30 Dextrose (D50w Syringe) 50 ml Q15M PRN IV DECREASED GLUCOSE; Start 06/21/17 at 14:30 Glucagon (Glucagen) 1 mg Q15M PRN IM DECREASED GLUCOSE; Start 06/21/17 at 14: 30 Glucose (Glutose) 15 gm Q15M PRN BUCCAL DECREASED GLUCOSE; Start 06/21/17 at 14:30 Atorvastatin Calcium (Lipitor) 10 mg HS PO Last administered on 06/22/17 21:16 ; Admin Dose 10 MG; Start 06/22/17 at 21:00 Enoxaparin Sodium (Lovenox) 60 mg Q12H SC Last administered on 06/23/17 08:21 ; Admin Dose 60 MG; Start 06/22/17 at 21:00 Levofloxacin (Levaquin) 500 mg DAILY@16 PO Last administered on 06/22/17 17:07 ; Admin Dose 500 MG; Start 06/22/17 at 16:00 JAYNA RAMIREZ MD Jun 23, 2017 13:42
[2017-06-23] MEDS: LEVOFLOXACIN 500 MG TAB PO SCH (16:26)
[2017-06-23] MEDS: ATORVASTATIN 10 MG TAB PO SCH (20:32)
[2017-06-24 00:13] VITALS: PULSE 63
[2017-06-24 00:29] VITALS: BP 99/53; RESP 19
[2017-06-24 04:00] VITALS: BP 110/53; RESP 19
[2017-06-24 04:30] VITALS: PULSE 70
[2017-06-24 05:59] LABS: BASOPHIL # 0.1 10^3/ul (0.0-0.1); BASOPHILS % 0.7 % (0.0-2.0); EOSINOPHILS # 0.1 10^3/ul (0.0-0.5); EOSINOPHILS % 1.7 % (0.0-7.0); HEMATOCRIT 40.3 % (37.0-47.0); HEMOGLOBIN 13.4 g/dl (12.0-16.0); LYMPHOCYTES # 1.7 10^3/ul (0.8-2.9); LYMPHOCYTES % 23.8 % (15.0-51.0); MEAN CORPUSCULAR HEMOGLOBIN 29.5 pg (29.0-33.0); MEAN CORPUSCULAR HGB CONC 33.3 g/dl (32.0-37.0); MEAN CORPUSCULAR VOLUME 88.8 fl (82.0-101.0); MEAN PLATELET VOLUME 10.9 fl (7.4-10.4); MONOCYTE # 0.7 10^3/ul (0.3-0.9); MONOCYTES % 9.6 % (0.0-11.0); NEUTROPHIL # 4.6 10^3/ul (1.6-7.5); NEUTROPHILS % 63.9 % (39.0-77.0); PLATELET COUNT 195 10^3/UL (140-415); RED BLOOD COUNT 4.54 10^6/ul (4.20-5.40); RED CELL DISTRIBUTION WIDTH 12.7 % (11.5-14.5); WHITE BLOOD COUNT 7.2 10^3/ul (4.8-10.8)
[2017-06-24 06:40] LABS: CALCIUM 9.7 mg/dl (8.4-10.2); CREATININE 0.86 mg/dl (0.44-1.00); POTASSIUM 4.3 mmol/L (3.5-5.1)
[2017-06-24 08:08] VITALS: PULSE 63
[2017-06-24 08:18] VITALS: BP 96/52; RESP 20
[2017-06-24] MEDS: LINAGLIPTIN 5 MG TABLET PO SCH (08:28)
[2017-06-24] MEDS: ASPIRIN (EC) 81 MG TAB PO SCH (08:28)
[2017-06-24] MEDS: METOPROLOL 50 MG TAB PO SCH (08:29)
[2017-06-24] MEDS: LOSARTAN 50 MG TAB PO SCH (08:30)
[2017-06-24] MEDS: metFORMIN 850 MG TAB PO SCH (08:30)
[2017-06-24] MEDS: ENOXAPARIN 60 MG/0.6 ML SYG SC SCH (08:31)
--- NOTE | 2017-06-24 09:32 | DS ---
Date/Time of Note Date/Time of Note DATE: 06/24/17 TIME: 09:28 Discharge Summary Admission/Discharge Info Admit Date/Time Jun 21, 2017 at 07:53 Discharge Date/Time June 24, 2017 Discharge Diagnosis Paroxysmal atrial fibrillation; congestive heart failure; hypertension; diabetes mellitus type 2; Patient Condition: Good Consults Cardiology Procedures EchocardiogramConclusions 1. Normal left ventricular systolic function. Normal left ventricular cavity size. Moderate concentric left ventricular hypertrophy. Ejection fraction is visually estimated at 55 %. Abnormal Diastolic Function. 2. Mild mitral leaflet calcification. Mild mitral annular calcification. Trace mitral regurgitation. 3. Normal appearance of the aortic valve. No significant aortic stenosis or insufficiency. 4. Normal appearance of the tricuspid valve. Unable to obtain RVSP due to minimal presence of tricuspid regurgitation. There is trace tricuspid regurgitation. 5. Pulmonic valve not well visualized. There is trace pulmonic regurgitation. 6. Normal pericardium with no significant pericardial effusion. PROCEDURE: Lexiscan myocardial perfusion study CLINICAL INDICATION: 72 -year-old patient complaining of chest pain. TECHNIQUE: Lexiscan 0.4 mg intravenously separate acquisition gated myocardial perfusion SPECT using Tc 99m Myoview 33.0 mCi intravenously at stress and Tc-99m Myoview, 10.5 mCi intravenously at rest was performed using the rest/stress sequence. Poststress Myoview SPECT images were obtained in the supine position. COMPARISON: No prior studies. FINDINGS: Perfusion images reveal no evidence of perfusion defects. Lexiscan post stress gated SPECT images demonstrate no wall motion abnormalities. IMPRESSION: 1. No evidence of perfusion defects. 2. No wall motion abnormalities. 3. The left ventricle ejection fraction at stress is 57%. Hx of Present Illness Hx of Present Illness 72 yo F who started having difficulty breathing early this am at about 4am. This got worse to where her family had to bring her to the ER. She has a hx of HTN and DM and has been very compliant with her meds. She has never had an UT in the past. She's been having some mild phlegm production over the last few days but no fever. She denies chest pain as well. she has had similar symptoms about 2 years ago and this was attributed to her HTN. She has very mild headache, but denies abd pain, diarrhea, blood in stool, dysuria or hematuria. No smokers in the home. Hospital Course 72-year-old female was admitted with atrial fibrillation with rapid ventricular response and some fluid overload. She was treated medically and did well and had a negative set of enzymes. Cardiology however recommended holding her in performing imaging studies stress test. She is gone through that protocol and fortunately has negative imaging studies on Lexiscan. Because of this she is now stable for discharge. She will be discharged home in improved condition as compared to the time of admission. She has no known communicable diseases she is not hazard to herself or others is competent for medical decisions Home Meds Active Scripts Aspirin* (Aspirin* EC) 81 Mg Tabec, 81 MG PO DAILY, #30 Prov:IVÁN ERVIN V. LOG FEEDER 07/28/15 Reported Medications Aspirin* (Aspirin* Chew) 81 Mg Tab.chew, 81 MG PO DAILY, TAB.CHEW 06/21/17 Metoprolol Succinate* (Toprol XL*) 100 Mg Tab.sr.24h, 100 MG PO DAILY, #30 TAB 06/21/17 Metformin* (Glucophage*) 850 Mg Tablet, 850 MG PO BID, #60 TAB 06/21/17 Sitagliptin* (Januvia*) 50 Mg Tablet, 50 MG PO DAILY, TAB 07/26/15 Losartan Potassium* (Losartan Potassium*) 50 Mg Tablet, 50 MG PO DAILY, TAB 07/26/15 Discontinued Scripts Carvedilol* (Coreg*) 3.125 Mg Tab, 3.125 MG PO BID, #30 TAB Prov:IVÁN ERVIN V. LOG FEEDER 07/28/15 Follow-up Plan Follow-up with primary care physician in 2 weeks and with cardiology in 2 weeks Primary Care Provider Care Physician No Primary Time spent on discharge: > 30 minutes Pending Labs Laboratory Tests Test 06/23/17 11:57 06/24/17 05:23 Bedside Glucose 112mg/dL (70-220) White Blood Count 7.210^3/ul (4.8-10.8) Red Blood Count 4.5410^6/ul (4.20-5.40) Hemoglobin 13.4g/dl (12.0-16.0) Hematocrit 40.3% (37.0-47.0) Mean Corpuscular Volume 88.8fl (82.0-101.0) Mean Corpuscular Hemoglobin 29.5pg (29.0-33.0) Mean Corpuscular Hemoglobin Concent 33.3g/dl (32.0-37.0) Red Cell Distribution Width 12.7% (11.5-14.5) Platelet Count 32200^3/UL (140-415) Mean Platelet Volume 10.9fl (7.4-10.4) Neutrophils % 63.9% (39.0-77.0) Lymphocytes % 23.8% (15.0-51.0) Monocytes % 9.6% (0.0-11.0) Eosinophils % 1.7% (0.0-7.0) Basophils % 0.7% (0.0-2.0) Nucleated Red Blood Cells % 0.0/100WBC (0.0-0.0) Neutrophils # 4.610^3/ul (1.6-7.5) Lymphocytes # 1.710^3/ul (0.8-2.9) Monocytes # 0.710^3/ul (0.3-0.9) Eosinophils # 0.110^3/ul (0.0-0.5) Basophils # 0.110^3/ul (0.0-0.1) Nucleated Red Blood Cells # 0.010^3/ul (0.0-0.0) Sodium Level 139mmol/L (135-144) Potassium Level 4.3mmol/L (3.5-5.1) Chloride Level 97mmol/L (97-110) Carbon Dioxide Level 32mmol/L (21-31) Anion Gap 14 (8-16) Blood Urea Nitrogen 32mg/dl (7-20) Creatinine 0.86mg/dl (0.44-1.00) Glucose Level 134mg/dl (70-220) Calcium Level 9.7mg/dl (8.4-10.2) JAYNA RAMIREZ MD Jun 24, 2017 09:32
--- NOTE | 2017-06-24 09:33 | PDOCDIS ---
Discharge Instructions DIAGNOSIS Discharge Diagnosis Paroxysmal atrial fibrillation; congestive heart failure; hypertension; diabetes mellitus type 2; CONDITION Patient Condition: Good HOME CARE INSTRUCTIONS: Diet Instructions: Modified Fat ACTIVITY: Activity Restrictions: No Restrictions FOLLOW UP/APPOINTMENTS Follow-up Plan Follow-up with primary care physician in 2 weeks and with cardiology in 2 weeks JAYNA RAMIREZ MD Jun 24, 2017 09:33
[2017-06-24] MEDS ORDERED: ATOR10TA65 PO (09:34)
[2017-06-24] MEDS ORDERED: LEVO500T72 PO (09:34)
--- NOTE | 2017-06-25 13:26 | RADRPT ---
Vent Rate: 81 bpm RR Interval: 0 msec [place] Interval: 0 msec QRS Duration: 118 msec QT Interval: 430 msec QTC Interval: 499 msec P-R-T Jakin: 0 - 73 - -10 degrees Atrial fibrillation Left ventricular hypertrophy with QRS widening T wave abnormality, consider inferior ischemia or digitalis effect Abnormal ECG Electronically Signed By: Barron Montano [id number]
== END 2017-06-24 11:56 | disposition home or self-care (01) | DRG 308 ==
LOC: E/R 05:39 → MS3 07:53 → MS4 20:09
PROVIDERS: ADMIT Family Medicine; ATTEND Family Medicine
DX: I48.0 Paroxysmal atrial fibrillation (principal); I50.31 Acute diastolic (congestive) heart failure; I11.0 Hypertensive heart disease with heart failure; I48.92 Unspecified atrial flutter; E11.9 Type 2 diabetes mellitus without complications; I25.10 Atherosclerotic heart disease of native coronary artery without angina pectoris; Z86.73 Personal history of transient ischemic attack (TIA), and cerebral infarction without residual deficits; Z79.82 Long term (current) use of aspirin
CPT/HCPCS: 36415; 71010; 78452; 80048; 80061; 80076; 81001; 82550; 82553; 82962; 83735; 83880; 84100; 84443; 84484; 85025; 85610; 85730; 93005; 93017; 93306; 94664; 96374; J1940; A9500; A9505; J2785

== ENCOUNTER 2017-07-10 05:24 | Emergency (ER) | payer MEDICAID ==
[~2017-07-10] VITALS: Ht 162.6 cm; Wt 67.9 kg
[~2017-07-10 05:24] MED LIST changes: +ATOR10TA65 PO; -CARV3.12 PO; +LEVO500T72 PO; +METF-480 PO; +METO-336 PO
[2017-07-10 05:36] VITALS: Ht 162.6 cm; Wt 67.9 kg
[2017-07-10] MEDS ORDERED: ALBUTEROL 0.083% (NEB) 2.5 MG/3 ML AMP NEB STA (07:30)
--- NOTE | 2017-07-10 08:00 | RADRPT ---
PROCEDURE: XR Chest. CLINICAL INDICATION: Chest pain. TECHNIQUE: AP Portable chest. COMPARISON: 07/27/2015 chest x-ray FINDINGS: The soft tissues and bones are remarkable for thoracic spondylosis and bilateral acromioclavicular o steoarthropathy. No focal infiltrates, masses or effusions are present. Mild cardiomegaly and vascul ar calcifications of the thoracic aorta are noted. No pneumothorax is present. IMPRESSION: 1. No radiographic evidence for acute cardiopulmonary disease 2. Mild cardiomegaly and atherosclerotic vascular disease RPTAT: HDC .Neelima Melo MD, MD Date Time Electronically viewed and signed by .Neelima Meol MD, MD on 07/10/2017 08:00 .C/
[2017-07-10 08:21] LABS: BASOPHILS % 0.2 % (0.0-2.0); EOSINOPHILS # 0.1 10^3/ul (0.0-0.5); EOSINOPHILS % 1.1 % (0.0-7.0); HEMATOCRIT 37.1 % (37.0-47.0); HEMOGLOBIN 11.8 g/dl (12.0-16.0); LYMPHOCYTES # 1.4 10^3/ul (0.8-2.9); LYMPHOCYTES % 16.9 % (15.0-51.0); MEAN CORPUSCULAR HEMOGLOBIN 29.1 pg (29.0-33.0); MEAN CORPUSCULAR HGB CONC 31.8 g/dl (32.0-37.0); MEAN CORPUSCULAR VOLUME 91.4 fl (82.0-101.0); MEAN PLATELET VOLUME 11.7 fl (7.4-10.4); MONOCYTE # 0.6 10^3/ul (0.3-0.9); MONOCYTES % 7.6 % (0.0-11.0); NEUTROPHIL # 6.1 10^3/ul (1.6-7.5); PLATELET COUNT 158 10^3/UL (140-415); RED BLOOD COUNT 4.06 10^6/ul (4.20-5.40); RED CELL DISTRIBUTION WIDTH 13.2 % (11.5-14.5); WHITE BLOOD COUNT 8.3 10^3/ul (4.8-10.8)
--- NOTE | 2017-07-10 08:41 | ERD ---
ER Documentation Chief Complaint Chief Complaint shortness of breath since 2 hours ago, hx CHF HPI This is a 72-year-old female with a history of congestive heart failure is complaining of some sensation that she needs to cough up some phlegm. She said she tried to cough up the phlegm but would not come up she had a hard time getting it up so they came to the emergency room. She says she had no chest pain no shortness of breath no diaphoresis no nausea or vomiting. She says she has has no cough no fever. She says she just felt a little congested this morning and feels fine now ROS All systems reviewed and are negative except as per history of present illness. Medications Home Meds Active Scripts Atorvastatin (Atorvastatin) 10 Mg Tablet, 10 MG PO HS for 30 Days, #30 TAB 1 Refill Prov:JAYNA RAMIREZ MD 06/24/17 Levofloxacin* (Levaquin*) 500 Mg Tablet, 500 MG PO DAILY@16 for 3 Days, #3 TAB Prov:JAYNA RAMIREZ MD 06/24/17 Aspirin* (Aspirin* EC) 81 Mg Tabec, 81 MG PO DAILY, #30 Prov:IVÁN ERVIN NP 07/28/15 Reported Medications Metoprolol Succinate* (Toprol XL*) 100 Mg Tab.sr.24h, 100 MG PO DAILY, #30 TAB 06/21/17 Metformin* (Glucophage*) 850 Mg Tablet, 850 MG PO BID, #60 TAB 06/21/17 Sitagliptin* (Januvia*) 50 Mg Tablet, 50 MG PO DAILY, TAB 07/26/15 Losartan Potassium* (Losartan Potassium*) 50 Mg Tablet, 50 MG PO DAILY, TAB 07/26/15 Allergies Allergies: Coded Allergies: No Known Allergy (Unverified , 07/10/17) PMhx/Soc History of Surgery: Yes (SHOULDER/HAND) Anesthesia Reaction: No Hx Neurological Disorder: Yes (POSSIBLE CVA) Hx Respiratory Disorders: No Hx Cardiac Disorders: Yes (CHF CAD HTN dm) Hx Psychiatric Problems: No Hx Miscellaneous Medical Probl: Yes Hx Alcohol Use: No Hx Substance Use: No Hx Tobacco Use: No Smoking Status: Never smoker FmHx Family History: No coronary disease Physical Exam Vitals Vital Signs Date Time Temp Pulse Resp B/P Pulse Ox O2 Delivery O2 Flow Rate FiO2 07/10/17 07:43 80 18 97 21 07/10/17 05:36 99.0 65 20 159/68 93 Physical Exam Const: Well-developed, well-nourished Head: Atraumatic, normocephalic Eyes: Normal Conjunctiva, PERRLA, EOMI, normal sclera, no nystagmus ENT: Normal External Ears, Nose and Mouth, moist mucus membranes. Neck: Full range of motion. No meningismus, no lymphadenopathy. Resp: Clear to auscultation bilaterally, no wheezing, rhonchi, rales Cardio: Regular rate and rhythm, no murmurs, S1 S2 present Abd: Soft, non tender x 4, non distended. Normal bowel sounds, no guarding or rebound, no pulsitile abdominal masses or bruits Skin: No petechiae or rashes, no ecchymosis , no maculopapular rash Back: No midline or flank tenderness Ext: No cyanosis, or edema, FROM x 4, normal inspection, neurovascularly intact x 4 Neur: Awake and alert, STR 5/5 x 4, sensation intact x 4, no focal findings, cerebellum intact Psych: Normal Mood and Affect Result Diagram: 07/10/17 0707/10/17 0726 Results 24 hrs Laboratory Tests Test 07/10/17 07:26 White Blood Count 8.310^3/ul Red Blood Count 4.0610^6/ul Hemoglobin 11.8g/dl Hematocrit 37.1% Mean Corpuscular Volume 91.4fl Mean Corpuscular Hemoglobin 29.1pg Mean Corpuscular Hemoglobin Concent 31.8g/dl Red Cell Distribution Width 13.2% Platelet Count 26378^3/UL Mean Platelet Volume 11.7fl Neutrophils % 74.0% Lymphocytes % 16.9% Monocytes % 7.6% Eosinophils % 1.1% Basophils % 0.2% Nucleated Red Blood Cells % 0.0/100WBC Neutrophils # 6.110^3/ul Lymphocytes # 1.410^3/ul Monocytes # 0.610^3/ul Eosinophils # 0.110^3/ul Basophils # 0.010^3/ul Nucleated Red Blood Cells # 0.010^3/ul Sodium Level 142mmol/L Potassium Level 4.0mmol/L Chloride Level 103mmol/L Carbon Dioxide Level 30mmol/L Anion Gap 13 Blood Urea Nitrogen 15mg/dl Creatinine 0.70mg/dl Glucose Level 119mg/dl Calcium Level 9.4mg/dl Troponin I 0.027ng/ml B-Type Natriuretic Peptide 1260PG/ML Current Medications Medications (Trade) Dose Ordered Sig/Carrol Route PRN Reason Start Time Stop Time Status Last Admin Dose Admin Albuterol (Proventil 0.083% (Neb)) 7.5 mg ONCE STAT NEB 07/10/17 07:30 07/10/17 07:32 DC 07/10/17 07:42 Furosemide (Lasix) 40 mg ONCE ONCE IV 07/10/17 09:30 07/10/17 09:31 Procedures/MDM PROCEDURE: XR Chest. CLINICAL INDICATION: Chest pain. TECHNIQUE: AP Portable chest. COMPARISON: 07/27/2015 chest x-ray FINDINGS: The soft tissues and bones are remarkable for thoracic spondylosis and bilateral acromioclavicular osteoarthropathy. No focal infiltrates, masses or effusions are present. Mild cardiomegaly and vascular calcifications of the thoracic aorta are noted. No pneumothorax is present. IMPRESSION: 1. No radiographic evidence for acute cardiopulmonary disease 2. Mild cardiomegaly and atherosclerotic vascular disease RPTAT: HDC .Neelima Melo MD, MD Date Time Electronically viewed and signed by .Neelima Melo MD, MD on 07/10/2017 08: 00 .C/ CC: SHERRIE OLEA DO EKG: Rate/Rhythm: Sinus bradycardia heart rate 58 with inverted T waves in leads II 3F, V3 through V6 QRS, ST, QT: NORMAL [place], QRS, QT] Impression: Abnormal EKG After observation time the patient says she is feeling better. The patient does have some congestion that she could not get up and she feels better now. She has not had a cough. Chest x-ray is unremarkable. Her BNP is 1260. Her last BNP was 1650. Patient does not have any's clinical signs of volume overload with pulmonary congestion or swollen legs. Saturations on room air 98%. We will give her a dose of Lasix before going home. Patient was admitted to the hospital on June 21 and underwent a cardiac stress test which was normal. EKG is unchanged currently Feel her symptomology is likely some type of virus Departure Diagnosis: Primary Impression: URI (upper respiratory infection) URI type: unspecified URI Qualified Code: J06.9 - Upper respiratory tract infection, unspecified type Additional Impression: Chest congestion Condition: Stable SHERRIE OLEA DO Jul 10, 2017 08:41
[2017-07-10 08:48] LABS: CALCIUM 9.4 mg/dl (8.4-10.2); CREATININE 0.7 mg/dl (0.44-1.00)
[2017-07-10 08:59] LABS: TROPONIN-I 0.027 ng/ml (0.00-0.12)
[2017-07-10] MEDS ORDERED: FUROSEMIDE 40 MG INJ IV ONE (09:30)
[2017-07-10 10:10] VITALS: BP 115/70; PULSE 59; RESP 18; TEMP 98
== END 2017-07-10 10:13 | disposition home or self-care (01) ==
LOC: E/R 05:24
DX: J06.9 Acute upper respiratory infection, unspecified (principal); E11.9 Type 2 diabetes mellitus without complications; I10 Essential (primary) hypertension; I50.9 Heart failure, unspecified; I25.10 Atherosclerotic heart disease of native coronary artery without angina pectoris; Z79.82 Long term (current) use of aspirin; Z79.84 Long term (current) use of oral hypoglycemic drugs
CPT/HCPCS: 36415; 71010; 80048; 83880; 84484; 85025; 93005; 94664; J1940; Z7502; Z7610

== ENCOUNTER 2017-07-18 09:16 | Inpatient (IN) | END 2017-07-22 14:25 | disposition home or self-care (01) | DRG 293 ==